=== PATIENT | female | born 1980 | race African-American/Black ===

== ENCOUNTER 2023-08-13 20:08 | Inpatient (IN) | payer OTHER ==
[2023-08-13 20:55] VITALS: BMI 21.2
[2023-08-13] MEDS ORDERED: LORazepam 2 MG TABLET ONE (21:07)
[2023-08-13] MEDS ORDERED: METOPROLOL TARTRATE 25 MG TABLET (FP) ONE (21:07)
[2023-08-13] MEDS: LORazepam 1 MG TABLET PO ONE (21:08)
[2023-08-13] MEDS: METOPROLOL TARTRATE 25 MG TABLET (FP) PO ONE (21:08)
[2023-08-13] MEDS ORDERED: chlordiazePOXIDE HCL 25 MG CAPSULE PO PRN (21:09)
[2023-08-13] MEDS ORDERED: P-EPHED 60MG/TRIPROLIDI 2.5MG TABLET PO PRN (21:10)
[2023-08-13] MEDS ORDERED: POLYETHYLENE GLYCOL (HEALTHYLAX) 3350 17 GM PACKET PO PRN (21:10)
[2023-08-13] MEDS ORDERED: BENZONATATE 200 MG CAPSULE PO PRN (21:10)
[2023-08-13] MEDS ORDERED: ACETAMINOPHEN 325 MG TABLET (FP) PO PRN (21:10)
[2023-08-13] MEDS ORDERED: IBUPROFEN 400 MG TABLET (FP) PO PRN (21:10)
[2023-08-13] MEDS ORDERED: MAG HYDROX/AL HYDROX/SIMETH 30 ML UNIT-DOSE CUP PO PRN (21:10)
[2023-08-13] MEDS ORDERED: NICOTINE POLACRILEX 2 MG GUM BUC PRN (21:10)
[2023-08-13] MEDS ORDERED: MAGNESIUM HYDROX 2400MG/30ML ORAL SUSPENSION 30 ML CUP PO PRN (21:10)
[2023-08-13] MEDS ORDERED: BENZOCAINE/MENTHOL (CHLORASEPTIC ) LOZENGE MM PRN (21:10)
[2023-08-13] MEDS ORDERED: BISMUTH SUBSALICYLATE 524 MG/30 ML PO PRN (21:10)
[2023-08-13] MEDS ORDERED: ONDANSETRON *ODT* 4 MG TABLET SL PRN (21:10)
[2023-08-13] MEDS ORDERED: LOPERAMIDE HCL 2 MG CAPSULE PO PRN (21:10)
[2023-08-13] MEDS ORDERED: NICOTINE POLACRILEX 2 MG LOZENGE BC PRN (21:10)
[2023-08-13] MEDS ORDERED: guaiFENesin 600 MG TABLET.ER (FP) PO PRN (21:10)
[2023-08-13] MEDS ORDERED: DICYCLOMINE HCL 10 MG CAPSULE PO PRN (21:10)
[2023-08-13] MEDS ORDERED: chlordiazePOXIDE HCL 25 MG CAPSULE ONE (23:19)
[2023-08-13] MEDS ORDERED: levETIRAcetam 500 MG TABLET (FP) PO ONE (23:19)
[2023-08-13] MEDS ORDERED: MELATONIN 5 MG TABLETS ONE (23:19)
[2023-08-13] MEDS: MELATONIN 5 MG TABLETS PO SCH (23:20)
[2023-08-13] MEDS: chlordiazePOXIDE HCL 25 MG CAPSULE PO SCH (23:21)
[2023-08-13] MEDS: THIAMINE 100 MG TABLET PO SCH (23:21)
[2023-08-13] MEDS: levETIRAcetam 500 MG TABLET (FP) PO SCH (23:30)
[2023-08-14] MEDS ORDERED: METHOCARBAMOL 500 MG TABLET ONE (02:08)
[2023-08-14] MEDS ORDERED: hydrOXYzine PAMOATE 25 MG CAPSULE (FP) PO ONE (02:08)
[2023-08-14] MEDS: METHOCARBAMOL 500 MG TABLET PO PRN (02:10)
[2023-08-14] MEDS: hydrOXYzine PAMOATE 25 MG CAPSULE (FP) PO PRN (02:11)
[2023-08-14] MEDS ORDERED: IBUPROFEN 600 MG TABLET (FP) PO ONE (03:10)
[2023-08-14] MEDS: IBUPROFEN 600 MG TABLET (FP) PO PRN (03:12)
[2023-08-14] MEDS ORDERED: chlordiazePOXIDE HCL 25 MG CAPSULE ONE ×2 (05:36→11:03)
[2023-08-14 09:07] VITALS: RESP 17; TEMP 97.8
[2023-08-14] MEDS ORDERED: PRENATAL VITAMINS W/ FOLIC ACID TABLET (FP) PO ONE (11:04)
[2023-08-14] MEDS: PRENATAL VITAMINS W/ FOLIC ACID TABLET (FP) PO SCH (11:04)
[2023-08-14 12:55] VITALS: BP 132/79; PULSE 91
[2023-08-14 13:55] LABS: POTASSIUM 3.3 mmol/L (3.5-5.1)
[2023-08-14 14:00] LABS: ALBUMIN 3.6 g/dl (3.4-5.0); CALCIUM 9.4 mg/dL (8.5-10.1)
[2023-08-14 14:04] LABS: CREATININE 0.8 mg/dL (0.55-1.3)
[2023-08-14 14:04] LABS: HEMATOCRIT 34.5 % (32.4-45.2); HEMOGLOBIN 11.4 GM/dL (10.7-15.3); MCH 33.3 pg (25.7-33.7); MEAN CELL VOLUME 100.8 fl (80-96); MEAN PLT VOLUME 8.9 fl (7.5-11.1); PLATELET COUNT 148 10^3/uL (134-434); RBC 3.42 M/mm3 (3.60-5.2); WHITE BLOOD COUNT 3.3 K/mm3 (4.0-10.0)
[2023-08-15] MEDS ORDERED: chlordiazePOXIDE HCL 25 MG CAPSULE PO SCH (05:00)
[2023-08-16] MEDS ORDERED: chlordiazePOXIDE HCL 10 MG CAPSULE PO PRN
[2023-08-16] MEDS ORDERED: chlordiazePOXIDE HCL 10 MG CAPSULE PO SCH (05:00)
[2023-08-17] MEDS ORDERED: chlordiazePOXIDE HCL 10 MG CAPSULE PO SCH (05:00)
[2023-08-18] MEDS ORDERED: chlordiazePOXIDE HCL 10 MG CAPSULE PO ONE (05:00)
== END 2023-08-14 13:31 | disposition left against medical advice (07) | DRG 770 ==
LOC: YASAS 20:08 → Y6N 08-14 12:15
PROVIDERS: ADMIT Allergy & Immunology; ATTEND Surgery
PROC: HZ2ZZZZ Detoxification Services for Substance Abuse Treatment (ICD-10-PCS; principal; 2023-08-14)
DX: F10.230 Alcohol dependence with withdrawal, uncomplicated (principal); F17.290 Nicotine dependence, other tobacco product, uncomplicated; G62.9 Polyneuropathy, unspecified; G40.909 Epilepsy, unspecified, not intractable, without status epilepticus; I10 Essential (primary) hypertension; Z88.0 Allergy status to penicillin
CPT/HCPCS: 36415; 80053; 80305; 80307; 81025; 85027; 86780; 93005; 93010